=== PATIENT | male | born 1940 | race Caucasian/White ===

== ENCOUNTER → 2017-11-27 | Outpatient (CLI) | payer MEDICARE | END | disposition home or self-care (01) | LOC: ROC 13:39 | PROVIDERS: ATTEND Radiology Radiation Oncology | DX: C78.02 Secondary malignant neoplasm of left lung (principal); C61 Malignant neoplasm of prostate; Z85.528 Personal history of other malignant neoplasm of kidney | CPT/HCPCS: G0463 ==

== ENCOUNTER → 2017-11-27 | Outpatient (CLI) | payer MEDICARE | LOC: ROC 08:17 | PROVIDERS: ATTEND Radiology Radiation Oncology | DX: Z02.9 Encounter for administrative examinations, unspecified (principal) ==